=== PATIENT | female | born 1935 | race Asian ===

== ENCOUNTER 2017-06-12 07:38 | Emergency (ER) | payer MEDICARE, OTHER ==
[~2017-06-12] VITALS: Ht 152.4 cm; Wt 45.4 kg
[2017-06-12] MEDS ORDERED: Methocarbamol 500mg tab ORAL ONE (08:15)
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
--- NOTE | 2017-06-12 09:30 | Diagnostic Imaging Report ---
Indication: Pain Technique: One view of the pelvis Comparison: none Findings: The bones are osteoporotic. No acute fractures. No dislocations. The joint spaces are preserved. Impression: No definite acute bony trauma. Note, however, that in elderly osteoporotic patients, nondisplaced hip fractures can easily be occult. Consider cross-sectional imaging for further evaluation if there is high clinical suspicion
--- NOTE | 2017-06-12 09:33 | Diagnostic Imaging Report ---
Indication: Reason For Exam: PAIN Technique: 3 views of the lumbar spine Comparison: None Findings:There is a compression fracture deformity of the L2 vertebral body. This is a vertebral plana deformity with approximately 20% height loss. The remainder of the vertebral body heights are preserved. There is mild lumbar levoscoliotic deformity. Otherwise normal bony alignment. No other evidence of acute fractures. No dislocations. The bones are osteoporotic. There are degenerative proliferative changes at multiple levels. There is calcification of the L5-S1 disc. Pedicles are intact. Sacral arches are preserved. Sacroiliac joint spaces are preserved. The surrounding soft tissues are unremarkable Impression: L2 vertebral body compression fracture deformity, acuity indeterminant. Correlate with clinical findings, consider MRI for further evaluation if clinically relevant Findings previously discussed by phone with Dr. Aburto in the emergency room
[2017-06-12 10:00] VITALS: BP 133/77
--- NOTE | 2017-06-12 10:29 | Diagnostic Imaging Report ---
Indication: Low back pain x3 days Technique: Sagittal T1 and T2 fast spin echo, sagittal STIR, axial T1 and T2 fast spin-echo, axial T2 fat saturated images of the lumbar spine Comparison: Reference made to plain radiographs earlier the same day Findings: There is a vertebral plana mild compression fracture deformity of the L2 vertebral body, with approximately 30% height loss both anteriorly and posteriorly. There is marrow edema, primarily along the fracture plane, manifested by low T1 and high STIR signal. No significant posterior retropulsion is demonstrated. The remainder of the bone marrow signal is normal. The remaining vertebral body heights are preserved. The conus medullaris terminates at the T12-L1 level. At L1-2, there is mild circumferential annular bulge. This does not result in any significant narrowing of the spinal canal. It does result in mild compromise of the bilateral neural foramina. The disc spaces preserved. At L2-3, there is mild degenerative disc narrowing. There is circumferential annular bulge which, in combination with short pedicles and facet hypertrophy results in mild to moderate narrowing of the spinal canal. Facet hypertrophy also results in moderate to severe narrowing of the right neural foramen and moderate narrowing of the left neural foramen There is also [id number] bilateral neural foraminal stenosis, which appears to be due to bony hypertrophy. At L3-4, there is circumferential annular bulge. This, in combination with ligamentum flavum hypertrophy, results in mild narrowing of the spinal canal at this level. There is mild compromise of the bilateral foramina. The disc space is preserved At L4-5, there is circumferential annular bulge as well as mild central post or focal disc protrusion. This results in minimal narrowing of the spinal canal. There is mild compromise of the right neural foramen and moderate compromise of the left neural foramen. The disc space is preserved At L5-S1, there is no significant disc bulge or protrusion. There is suggestion of a small high intensity zone in the periphery of the disc posteriorly. There is mild narrowing of the spinal canal which appears to be predominantly due to narrowing of the bony canal The included extra spinal soft tissues demonstrate a cyst in the left kidney Impression: Positive for acute L2 compression fracture, resulting in about 30% height loss both anteriorly and posteriorly. No significant retropulsion Degenerative changes as detailed on a level by level basis above
[2017-06-12] MEDS ORDERED: TYLENOL325 MG ORAL (10:54)
[2017-06-12] MEDS ORDERED: ROBAXIN500 MG PO (10:54)
[2017-06-12 10:59] VITALS: BP 133/77
== END 2017-06-12 11:00 | disposition home or self-care (01) ==
LOC: EMR 08:08
DX: M54.5 Low back pain (principal); S32.029A Unspecified fracture of second lumbar vertebra, initial encounter for closed fracture; Y08.89XA Assault by other specified means, initial encounter; Y92.89 Other specified places as the place of occurrence of the external cause; M47.816 Spondylosis without myelopathy or radiculopathy, lumbar region; I10 Essential (primary) hypertension; K21.9 Gastro-esophageal reflux disease without esophagitis
CPT/HCPCS: 72020; 72148; 72170; 99284

== ENCOUNTER → 2017-09-18 | Outpatient (CLI) | payer MEDICARE, OTHER ==
[~2017-09-18] MED LIST: ROBAXIN500 MG PO; TYLENOL325 MG ORAL
--- NOTE | 2017-09-18 11:15 | Diagnostic Imaging Report ---
Indication: Back pain Technique: Sagittal T1 and T2 fast spin echo, sagittal STIR, axial T1 and T2 fast spin-echo images of the lumbar spine Comparison: 06/12/2017 Findings: Again demonstrated is a compression fracture deformity of the L2 vertebral body. This demonstrates increased anterior wedging and increased vertebra plana deformity as compared to prior exam. In addition, the amount of edema within the vertebral body has increased, manifested by decreased T1 and increased STIR signal. There is now approximately 70% height loss anteriorly. There is progressive loss of height of the posterior wall, but no gross posterior wall fracture and no retropulsion. However, there is resultant greater deformity at the level of the adjacent discs There is a slight inferior endplate depression focally of the right side of the L1 vertebral body which is not evident previously. There is a mild degree of marrow edema of the inferior aspect of the L1 vertebral body. The posterior wall appears intact. The remainder of the vertebral body marrow signal is normal. The bony alignment is normal except for minimal loss of the normal lordotic curvature at L2. At L1-2, there is circumferential annular bulge, which now results in mild narrowing of the spinal canal at this level as well as compromise of the right lateral recess. This is worsened compared to the prior exam, and is probably exacerbated by the more severe compression fracture abnormality. Again demonstrated is mild compromise of the right neural foramen and mild compromise of the left neural foramen At L2-3, there is [id number] spinal stenosis due to posterior circumferential annular bulge, slightly worse than on the previous study at the disc level, similar below. There is moderate to severe compromise of the right neural foramen, mild to moderate compromise of the left neural foramen again demonstrated. At L3-4, there is circumferential annular bulge which results in borderline narrowing of the spinal canal, unchanged. There is mild compromise of the bilateral neural foramina. At L4-5, there is mild circumferential annular bulge as well as broad-based posterior central, right paracentral, and foraminal disc protrusion. This may result in mild compromise of the right neural foramen but no significant spinal canal stenosis. At L5-S1, there is mild broad-based posterior disc protrusion which does not compromise the spinal canal. The included extraspinal soft tissues are remarkable for the presence of a left renal cyst Impression: Since 06/12/2017, interim progression of previously demonstrated L2 wedge and vertebra plana compression fracture, with increased loss of height and increased bone marrow edema. New inferior endplate compression fracture of the L1 vertebral body. Progressive spinal stenosis and neural foraminal stenosis at L1-2 and L2-3, probably exacerbated by the progressive vertebral body compression fracture deformity Other stable degenerative changes, as described Incidental finding of a left renal cyst
== END | disposition home or self-care (01) ==
LOC: MRI 08:55
DX: S32.020G Wedge compression fracture of second lumbar vertebra, subsequent encounter for fracture with delayed healing (principal); N20.0 Calculus of kidney; X58.XXXD Exposure to other specified factors, subsequent encounter
CPT/HCPCS: 72148

== ENCOUNTER 2019-01-01 08:47 | Emergency (ER) | payer MEDICARE, OTHER ==
[~2019-01-01] VITALS: Ht 152.4 cm; Wt 41.7 kg
[2019-01-01] MEDS ORDERED: NKM (08:55)
--- NOTE | 2019-01-01 09:05 | NUR ---
ED Nurse Note: Patient walked in ED c/o left foot pain started last night. Patient aaox4, able to make needs known. Denies injury/trauma.
--- NOTE | 2019-01-01 09:09 | Emergency Room Report ---
History of Present Illness General Chief Complaint: Lower Extremity Injury Source: Patient, Medical Record Present Illness HPI Patient is a 83-year-old female who presented after increased left lower extremity pain. Patient reports having spontaneous onset of left foot pain. She reports having onset after waking up. She denies any recent injury. She had prior history of lumbar spine fracture and was noted to have increased discomfort to the arch of her foot. Pain is worse with movement. She denies any numbness or tingling. She had been taking gabapentin for her low back. She denies any medication allergies. Allergies: Coded Allergies: No Known Allergies (Verified Allergy, Unknown, 04/30/07) Patient History Past Medical History: see triage record Reviewed Nursing Documentation: PMH: Agreed; PSxH: Agreed Nursing Documentation-PMH Past Medical History: No History, Except For Hx Cardiac Problems: Yes - high cholesterol Hx Hypertension: Yes Hx Gastrointestinal Problems: Yes - GERD Review of Systems All Other Systems: negative except mentioned in HPI Physical Exam Vital Signs Date Time Temp Pulse Resp B/P (MAP) Pulse Ox O2 Delivery O2 Flow Rate FiO2 01/01/19 08:52 98.1 71 18 131/86 (101) 95 Room Air General Appearance: alert, GCS 15, thin, Chronically Ill ENT: normal ENT inspection Neck: full range of motion Respiratory: chest non-tender, lungs clear Cardiovascular #1: normal peripheral pulses, regular rate, rhythm, no edema Gastrointestinal: normal inspection, non tender, soft Musculoskeletal: normal inspection, tenderness - arch of left foot, no swelling or deformity brisk pulses Neurologic: normal inspection, alert, oriented x3, responsive Skin: normal inspection, normal color, no rash Medical Decision Making Diagnostic Impression: Primary Impression: Arthritis of foot ER Course Patient presented for foot pain. Differential diagnosis include was not limited to fracture, foreign body, shingles, radiculopathy among others. Patient appears to have a pain due to arthritis. There does not appear to be any evidence of vascular compromise. Extremiity is well-perfused.. X-ray imaging read by radiology showed no evidence of acute fracture with some osteopenia. The patient is advised to follow up with primary care doctor in 1- 2 days. Patient is advised to return if any worsening condition or if any changes in status that are concerning. This report is dictated with [employer] feather edger software which may occasionally lead to discrepancies related to use of this software. Last Vital Signs Date Time Temp Pulse Resp B/P (MAP) Pulse Ox O2 Delivery O2 Flow Rate FiO2 01/01/19 08:52 98.1 71 18 131/86 (101) 95 Room Air Status: improved Disposition: HOME, SELF-CARE Condition: Stable Scripts Acetaminophen* (ACETAMINOPHEN EXTRA STRENGTH*) 500 Mg Tablet 500 MG ORAL Q8H PRN for Fever/Headache/Mild Pain, #30 TAB Prov: Richard Voss MD 01/01/19 Diclofenac Sodium (VOLTAREN) 100 Gm Gel..gram. 5 GM TP DAILY, #100 GM Prov: Richard Voss MD 01/01/19 Richard Voss MD Jan 01, 2019 09:09
--- NOTE | 2019-01-01 09:15 | NUR ---
ED Nurse Note: Xray at bedside.
[2019-01-01 09:16] VITALS: BP 121/71
--- NOTE | 2019-01-01 09:48 | Diagnostic Imaging Report ---
EXAM: XR Left Foot Complete, 3 or More Views CLINICAL HISTORY: PAIN TECHNIQUE: Frontal, lateral and oblique views of the left foot. COMPARISON: No relevant prior studies available. FINDINGS: Bones/joints: Generalized osseous demineralization/osteopenia. No visible fracture or dislocation. Mild degenerative joint space narrowing throughout the interphalangeal joints and the hallux metatarsophalangeal joint. Small plantar calcaneal osseous spur. Soft tissues: Unremarkable. No radiopaque foreign body. IMPRESSION: 1. Generalized osseous demineralization/osteopenia. 2. No visible fracture or dislocation. 3. Mild degenerative joint space narrowing throughout the interphalangeal joints and the hallux metatarsophalangeal joint. 4. Small plantar calcaneal osseous spur.
[2019-01-01] MEDS ORDERED: VOLTAREN100 G1 TP (10:04)
[2019-01-01] MEDS ORDERED: ACETAMINOPHEN500 M3 ORAL (10:04)
[2019-01-01 10:12] VITALS: BP 119/72
--- NOTE | 2019-01-01 10:13 | NUR ---
ED Nurse Note: Pt cleared by health care Provider for discharge. DC instructions/prescription was given and explained to pt and verbalized understanding of teachings. ID band removed. Pt is AAO x4, ambulatory and left with all personal belongings accompanied by family member.
== END 2019-01-01 10:13 | disposition home or self-care (01) ==
LOC: EMR 09:23
DX: M19.072 Primary osteoarthritis, left ankle and foot (principal); E78.00 Pure hypercholesterolemia, unspecified; I10 Essential (primary) hypertension; K21.9 Gastro-esophageal reflux disease without esophagitis
CPT/HCPCS: 99283

== ENCOUNTER 2020-05-14 13:07 | Emergency (ER) | payer MEDICARE, OTHER ==
[~2020-05-14] VITALS: Ht 149.9 cm; Wt 54.4 kg
[~2020-05-14 13:07] MED LIST changes: +ACETAMINOPHEN500 M3 ORAL; +NKM; +VOLTAREN100 G1 TP
--- NOTE | 2020-05-14 13:43 | Emergency Room Report ---
History of Present Illness General Chief Complaint: General Complaint Present Illness HPI 84-year-old female with no known significant past medical history here complaining of bilateral ear being clogged and not being able to hear. Denies any earache, congestion, sore throat, other associate symptoms. Denies any dizziness or vertigo. Is sitting comfortably with stable vital signs.Patient reports that inability to be able to hear started after she took a long shower Allergies: Coded Allergies: No Known Allergies (Verified Allergy, Unknown, 04/30/07) COVID-19 Screening Contact w/high risk pt: No Experienced COVID-19 symptoms?: No COVID-19 Testing performed MIXER RUNNER: No Patient History Past Medical History: see triage record Past Surgical History: none Pertinent Family History: none Now: No Immunizations: UTD Reviewed Nursing Documentation: PMH: Agreed; PSxH: Agreed Nursing Documentation-PMH Hx Cardiac Problems: Yes - high cholesterol Hx Hypertension: Yes Hx Gastrointestinal Problems: Yes - GERD Review of Systems All Other Systems: negative except mentioned in HPI Physical Exam Vital Signs Date Time Temp Pulse Resp B/P (MAP) Pulse Ox O2 Delivery O2 Flow Rate FiO2 05/14/20 13:10 98.4 80 18 123/67 (85) 99 Sp02 EP Interpretation: reviewed, normal General Appearance: no apparent distress, alert, GCS 15, non-toxic Head: normocephalic, atraumatic Eyes: bilateral eye normal inspection, bilateral eye PERRL ENT: other - Bilateral cerumen impaction, tragus nontender to palpation, mastoid is nontender Neck: full range of motion, supple/symm/no masses Respiratory: no respiratory distress, no retraction Cardiovascular #1: regular rate, rhythm Gastrointestinal: normal bowel sounds, non tender, soft, non-distended, no guarding, no rebound Rectal: deferred Musculoskeletal: back normal Neurologic: alert, motor strength/tone normal, oriented x3, sensory intact, responsive, speech normal Psychiatric: judgement/insight normal, memory normal, mood/affect normal, no suicidal/homicidal ideation Skin: no rash Lymphatic: no adenopathy Medical Decision Making PA Attestation All diagnoses and treatment plans were reviewed and discussed with my supervising physician Dr. Myers Diagnostic Impression: Primary Impression: Cerumen impaction ER Course 84-year-old female with no known significant past medical history here complaining of bilateral ear being clogged and not being able to hear. Denies any earache, congestion, sore throat, other associate symptoms. Denies any dizziness or vertigo. Is sitting comfortably with stable vital signs. Patient reports that inability to be able to hear started after she took a long shower Ddx considered but are not limited to: Otitis media, otitis externa, mastoiditis, cerumen impaction, benign positional vertigo Vital signs: are WNL, pt. is afebrile H&PE are most consistent with: Cerumen impaction ORDERS: Debrox ED INTERVENTIONS: None required at this time. DISCHARGE: At this time pt. is stable for d/c to home. Will provide printed patient care instructions, and any necessary prescriptions. Care plan and follow up instructions have been discussed with the patient prior to discharge. Advised patient to follow primary doctor ear nose throat doctor if symptoms continue, also ear lavage may be needed upon request of primary doctor. If worsening symptoms return to the emergency room Last Vital Signs Date Time Temp Pulse Resp B/P (MAP) Pulse Ox O2 Delivery O2 Flow Rate FiO2 05/14/20 13:10 98.4 80 18 123/67 (85) 99 Disposition: HOME, SELF-CARE Condition: Stable Scripts Carbamide Peroxide (DEBROX) 15 Ml Drops 10 DROP BOTH EARS TWICE A DAY for 4 Days, #15 ML 0 Refills Prov: Shayy Meyer 05/14/20 Patient Instructions: Cerumen Impaction Additional Instructions: Take medication as directed, follow with primary care provider, worsening symptoms return to the emergency room Shayy Meyer May 14, 2020 13:43
[2020-05-14] MEDS ORDERED: DEBROX15 M1 BOTH EARS (13:44)
--- NOTE | 2020-05-14 13:52 | NUR ---
ED Nurse Note: Pt cleared by health care Provider for discharge. DC instructions/prescription was given and explained to pt and verbalized understanding of teachings. All medical deviecs such as ID band removed. Pt is AAO x4, ambulatory and left with all personal belongings.
[2020-05-14 14:47] VITALS: BP 123/67
== END 2020-05-14 13:52 | disposition home or self-care (01) ==
LOC: EMR 13:40
DX: H61.23 Impacted cerumen, bilateral (principal); E78.00 Pure hypercholesterolemia, unspecified; I10 Essential (primary) hypertension; K21.9 Gastro-esophageal reflux disease without esophagitis
CPT/HCPCS: 99282